=== PATIENT | female | born 1950 | race Hispanic/Latino ===

== ENCOUNTER 2021-09-26 18:14 | Emergency (ER) | payer MEDICARE ==
[~2021-09-26] VITALS: Ht 149.9 cm; Wt 63.0 kg
[2021-09-26 18:18] VITALS: BP 136/71
== END 2021-09-26 19:01 | disposition left against medical advice (07) ==
LOC: EDH 18:14
DX: R73.09 Other abnormal glucose (principal); Z53.21 Procedure and treatment not carried out due to patient leaving prior to being seen by health care provider
CPT/HCPCS: 82948